=== PATIENT | male | born 1980 | race Two or more races ===

== ENCOUNTER 2016-11-03 14:25 | Emergency (ER) | payer OTHER ==
[~2016-11-03] VITALS: Ht 180.3 cm; Wt 86.2 kg
[2016-11-03 14:39] VITALS: BP 130/78
[2016-11-03] MEDS ORDERED: NKM (14:43)
[2016-11-03] MEDS ORDERED: IBUPROFEN600 MG ORAL (15:27)
[2016-11-03 15:51] VITALS: BP 130/78
--- NOTE | 2016-11-03 15:57 | Diagnostic Imaging Report ---
Indications: Left hand pain Technique: 3 views of the left hand. Findings: Comparison: None. No fracture, dislocation, lytic destruction, periosteal reaction, surrounding soft tissue swelling, or other acute changes are demonstrated. 7 mm circumscribed lucent lesion is present within the base of the fifth distal phalanx, demonstrating mild expansile remodeling deformity and cortical thinning. No cortical destruction or overlying soft tissue abnormality. No additional chronic changes are demonstrated. IMPRESSION: No evidence of acute abnormality Cystic-appearing lesion in the fifth middle phalangeal base, nonspecific, may represent degenerative cyst, inclusion cyst, or enchondroma
--- NOTE | 2016-11-03 22:28 | Emergency Room Report ---
History of Present Illness General Chief Complaint: Upper Extremity Injury Source: Patient Present Illness HPI The patient is a 36-year-old male presenting with left hand pain after he states the hand was forced back by a heavy metal garbage bin at work today. The patient describes pain as a 7/10 dull ache to the mid palm and left fifth digit. The patient denies prior injury to these areas. Pain does not radiate. The pain is worse with movement such as hand clinching and better with rest. Patient denies any numbness or tingling and denies any other injury. The patient denies any other symptoms Allergies: Coded Allergies: No Known Allergies (Unverified , 11/03/16) Patient History Past Medical History: see triage record Pertinent Family History: none Reviewed Nursing Documentation: PMH: Agreed, PSxH: Agreed Nursing Documentation-PMH Past Medical History: No Stated History Review of Systems All Other Systems: negative except mentioned in HPI Physical Exam Vital Signs Date Time Temp Pulse Resp B/P Pulse Ox O2 Delivery O2 Flow Rate FiO2 11/03/16 14:39 98.2 72 14 130/78 100 Room Air Sp02 EP Interpretation: reviewed, normal General Appearance: no apparent distress, alert, GCS 15, non-toxic Head: normocephalic, atraumatic Eyes: bilateral eye PERRL, bilateral eye normal inspection ENT: hearing grossly normal, normal pharynx, no angioedema, normal voice Neck: full range of motion, supple/symm/no masses Musculoskeletal: normal range of motion, swelling - Mild edema to palmar surface of L 5th finger proximal to PIPJ, other - Hyperextension of L 5th PIPJ Neurologic: alert, oriented x3, responsive, motor strength/tone normal, sensory intact, speech normal Psychiatric: judgement/insight normal, memory normal, mood/affect normal, no suicidal/homicidal ideation Reflexes: 3+ bicep (R), 3+ bicep (L), 3+ tricep (R), 3+ tricep (L), 3+ knee (R) , 3+ knee (L) Skin: normal color, no rash, warm/dry, well hydrated Lymphatic: no adenopathy Procedures Splinting Splinting : Consent: Verbal Location: L 5th finger Pre-Made Type: metal Splint: finger Pre-Proc Neuro Vasc Exam: normal Post-Proc Neuro Vasc Exam: normal Patient Tolerated: Well Complications: None Medical Decision Making PA Attestation Dr. Sanabria is my supervising physician. Patient management was discussed with my supervising physician Diagnostic Impression: Primary Impression: Sprain of finger, left Additional Impression: Contusion of hand, left ER Course The patient is a 36-year-old male presenting with left hand pain Ddx considered include but not limited to sprain/strain, fracture, contusion, tendon injury PE: No apparent distress Left hand: There is slight ecchymosis to the left mid palm with overlying tenderness to palpation. No obvious deformity. No edema to this area. Full active range of motion of wrist and all fingers. There is hyperextension of the left fifth PIP joint with laxity. There is also mild edema proximal to the PIP joint. No ecchymosis. Sensation intact to light-touch Xray: No evidence of acute abnormality Cystic-appearing lesion in the fifth middle phalangeal base, nonspecific, may represent degenerative cyst, inclusion cyst, or enchondroma The patient is informed of these abnormal results. Patient informed that he may need MRI for supposedly soft tissue injury of the fifth finger The patient is given Motrin for pain and fifth finger is placed in a metal splint. ER precautions are given and the patient will followup with workers compensation and PMD. Other X-Ray Diagnostic Results Other X-Ray Diagnostic Results : Date: Nov 03, 2016 EP Interpretation: Yes Findings: no fractures, no dislocation, no soft tissue swelling Number of Views: 3 PA Scribe Text No evidence of acute abnormality Cystic-appearing lesion in the fifth middle phalangeal base, nonspecific, may represent degenerative cyst, inclusion cyst, or enchondroma Last Vital Signs Date Time Temp Pulse Resp B/P Pulse Ox O2 Delivery O2 Flow Rate FiO2 11/03/16 15:51 98.2 14 130/78 100 Room Air 11/03/16 14:39 72 Status: improved Disposition: HOME, SELF-CARE Condition: Improved Scripts Ibuprofen* (MOTRIN*) 600 Mg Tablet 600 MG ORAL Q8H Y for For Pain, #30 TAB 0 Refills Prov: NYASIA EUGENE 11/03/16 Patient Instructions: Finger Sprain Additional Instructions: I discussed my findings with the patient. All questions and concerns have been answered. Treatment and medication compliance have been addressed. I advised the patient that they need to follow up with PMD in 3-5 days. Return to ED if pain remains or worsens, numbness or tingling occurs, new rash is noticed, fever is noticed, or if needed for any reason. Patient verbalized understanding of discharge instructions. Please followup with workers compensation NYASIA EUGENE Nov 03, 2016 22:28
== END 2016-11-03 15:54 | disposition home or self-care (01) ==
LOC: EMR 15:07
DX: S60.222A Contusion of left hand, initial encounter (principal); S63.617A Unspecified sprain of left little finger, initial encounter; W22.8XXA Striking against or struck by other objects, initial encounter; Y92.9 Unspecified place or not applicable; Y99.0 Civilian activity done for income or pay
CPT/HCPCS: 99283

== ENCOUNTER 2017-08-10 05:14 | Emergency (ER) | payer OTHER ==
[~2017-08-10] VITALS: Ht 180.3 cm; Wt 90.7 kg
[~2017-08-10 05:14] MED LIST: IBUPROFEN600 MG ORAL; NKM
[2017-08-10 05:41] VITALS: BP 127/67
[2017-08-10] MEDS ORDERED: IBUPROFEN800 MG ORAL (05:55)
--- NOTE | 2017-08-10 06:03 | Emergency Room Report ---
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 Patient concerned because last year it suffered similar injury which resulted in hyperextension of PIP of left pinky finger, which patient still has. Patient able to open and close fist without pain. Didn't take any over-the- counter medications Allergies: Coded Allergies: No Known Allergies (Unverified , 11/03/16) Patient History Past Medical History: none Past Surgical History: none Pertinent Family History: none Social History: Denies: smoking, alcohol use, drug use Immunizations: UTD Reviewed Nursing Documentation: PMH: Agreed, PSxH: Agreed Nursing Documentation-PMH Past Medical History: No Stated History Review of Systems All Other Systems: negative except mentioned in HPI Physical Exam Vital Signs Date Time Temp Pulse Resp B/P (MAP) Pulse Ox O2 Delivery O2 Flow Rate FiO2 08/10/17 05:16 97.5 84 16 127/67 99 Room Air Sp02 EP Interpretation: reviewed, normal General Appearance: normal inspection, well appearing, no apparent distress, alert Head: atraumatic ENT: normal ENT inspection, hearing grossly normal, normal voice Neck: normal inspection, full range of motion, supple, no bony tend Respiratory: normal inspection, lungs clear, normal breath sounds, no respiratory distress, no retraction, no wheezing Cardiovascular #1: regular rate, rhythm, no edema Gastrointestinal: normal inspection, normal bowel sounds, non tender, soft, no guarding, no hernia Genitourinary: no CVA tenderness Musculoskeletal: normal inspection, back normal, normal range of motion, Ayana' s Sign negative, other - Left pinky: hyperextended DIP. Able to flex/extend against pressure at DIP, MCP, and PIP. No obvious trauma, bruising, or ecchymoses or swelling,. Neurologic: normal inspection, alert, responsive, speech normal Psychiatric: normal inspection, judgement/insight normal, mood/affect normal Skin: normal inspection, normal color, no rash Medical Decision Making Diagnostic Impression: Primary Impression: Sprain of finger, left Qualified Codes: S63.697A - Other sprain of left little finger, initial encounter ER Course Left pinky sprain No acute trauma on ER review of x-ray Advised RAN, prescription for Motrin workers comp paperwork completed ER course: Patient has remained stable during ED stay. Disposition: Patient is to be discharged to home. Prescriptions given are motrin Patient is instructed to follow up with their primary care doctor within 5 days. Strict return precautions discussed with patient such as fever, chills, worsening/severe pain, nausea, vomiting, which may indicate severe illness. Patient verbalizes understanding and agrees with plan. Please note that this Emergency Department Report was dictated using [employer] sales representative technology software, occasionally this can lead to erroneous entry secondary to interpretation by the dictation equipment Other X-Ray Diagnostic Results Other X-Ray Diagnostic Results : X-Ray ordered: Left hand # of Views/Limited Vs Complete: 3 View Indication: Pain EP Interpretation: Yes Interpretation: no dislocation, no soft tissue swelling, no fractures Impression: No acute disease Electronically Signed by: Dr Lambert Whitlock MD Last Vital Signs Date Time Temp Pulse Resp B/P (MAP) Pulse Ox O2 Delivery O2 Flow Rate FiO2 08/10/17 05:41 97.5 84 16 127/67 99 Room Air Status: improved Disposition: HOME, SELF-CARE Condition: Improved Scripts Ibuprofen* (MOTRIN*) 800 Mg Tablet 800 MG ORAL THREE TIMES A DAY for For Pain for 7 Days, #30 TAB 0 Refills Prov: LAMBERT WHITLOCK M.D. 08/10/17 Referrals: NOT CHOSEN [facility]/,REFERRING (PCP) Patient Instructions: Finger Sprain, [id number] LAMBERT WHITLOCK M.D. Aug 10, 2017 06:03
[2017-08-10 06:09] VITALS: BP 127/67
--- NOTE | 2017-08-10 11:57 | Diagnostic Imaging Report ---
Indication: PAIN Technique: 3 views right hand Comparison: none Findings: No acute fractures. No dislocations. The joint spaces are preserved. Impression: Negative
== END 2017-08-10 06:09 | disposition home or self-care (01) ==
LOC: EMR 05:35
DX: S63.697A Other sprain of left little finger, initial encounter (principal); W22.8XXA Striking against or struck by other objects, initial encounter; Y92.89 Other specified places as the place of occurrence of the external cause; Y99.0 Civilian activity done for income or pay
CPT/HCPCS: 99283